=== PATIENT | male | born 1935 | race Caucasian/White ===

== ENCOUNTER 2016-06-12 04:05 | Emergency (ER) | payer MEDICARE ==
[~2016-06-12] VITALS: Ht 167.6 cm; Wt 65.3 kg
[~2016-06-12 04:05] MED LIST: ASPIRIN81 M1 PO; COZAAR100 MG PO; CRESTOR10 MG PO; FISH OIL; KEFTAB500 MG PO; MULTIVITAMIN; PLAVIX75 MG PO
[2016-06-12] MEDS ORDERED: BRILINTA90 M1 PO (04:20)
[2016-06-12] MEDS ORDERED: ISORDIL20 MG PO (04:21)
[2016-06-12] MEDS ORDERED: NITROSTAT0.4 MG SL (04:22)
[2016-06-12] MEDS ORDERED: RANEXA500 M1 PO (04:24)
[2016-06-12] MEDS ORDERED: COREG12.5 M1 PO (04:24)
[2016-06-12 04:28] LABS: BASO % 0.2 % (0.0-1.0); EOS # 0.2 10*3/uL (0.0-0.4); EOS % 1.9 % (1.0-4.0); HEMATOCRIT 41.4 % (42.0-52.0); HEMOGLOBIN 14.1 g/dl (14.0-18.0); LYMPH # 1.8 10*3/uL (1.3-4.4); LYMPH % 19.6 % (27.0-41.0); MEAN CELL VOLUME 93.5 fl (80.0-94.0); MEAN CORPUSCULAR HGB 31.8 pg (27.0-31.0); MEAN CORPUSCULAR HGB CONC 34.1 g/dl (33.0-37.0); MEAN PLATELET VOLUME 11.1 fl (9.6-12.3); MONO # 0.9 10*3/uL (0.1-1.0); MONO % 9.8 % (3.0-9.0); NEUT # 6.1 10*3/uL (2.3-7.9); NEUT % 68.2 % (47.0-73.0); PLATELET COUNT AUTOMATED 178 10*3/uL (130-400); RED BLOOD COUNT 4.43 10*6/uL (4.50-5.90); RED CELL DISTRI WIDTH 13.5 % (0-14.5)
[2016-06-12 04:45] LABS: ALBUMIN 3.5 gm/dl (3.1-4.5); ALKALINE PHOSPHATASE 52 U/L (45-117); BILIRUBIN, TOTAL 0.4 mg/dl (0.2-1.0); BUN 22 mg/dl (7-24); CARBON DIOXIDE 23 mmol/L (21-32); CHLORIDE 110 mmol/L (98-107); EST GLOM FILT AFRICAN AMERICAN 59 ml/min; GLUCOSE 92 mg/dL (65-99); POTASSIUM 4.3 mmol/L (3.5-5.1); SGOT/AST 20 IU/L (3-35); SGPT/ALT 21 U/L (12-78); SODIUM 142 mmol/L (136-145); TOTAL PROTEIN 7.2 gm/dL (6.4-8.2); TROPONIN I < 0.015 ng/ml (<0.5)
[2016-06-12 04:46] LABS: INTERNATIONAL NORM RATIO 1.1 (2.0-3.5); PROTHROMBIN TIME 11.3 SECONDS (9.0-12.4)
== END 2016-06-12 08:38 | disposition short-term general hospital (02) ==
LOC: ED 04:05
PROVIDERS: Emergency Medicine Emergency Medical Services
DX: R07.89 Other chest pain (principal); Z88.8 Allergy status to other drugs, medicaments and biological substances; Z79.82 Long term (current) use of aspirin; Z79.899 Other long term (current) drug therapy

== ENCOUNTER 2017-08-31 17:03 | Emergency (ER) | payer MEDICARE ==
[~2017-08-31] VITALS: Wt 64.4 kg
[~2017-08-31 17:03] MED LIST changes: +BRILINTA90 M1 PO; +COREG12.5 M1 PO; +ISORDIL20 MG PO; +NITROSTAT0.4 MG SL; +RANEXA500 M1 PO
[2017-08-31] MEDS ORDERED: CEFADROXIL500 M1 PO (17:43)
== END 2017-08-31 17:58 | disposition home or self-care (01) ==
LOC: ED 17:03
DX: S61.412A Laceration without foreign body of left hand, initial encounter (principal); Z79.899 Other long term (current) drug therapy; Z79.82 Long term (current) use of aspirin; Z88.8 Allergy status to other drugs, medicaments and biological substances; W45.8XXA Other foreign body or object entering through skin, initial encounter; Y93.89 Activity, other specified; Y92.89 Other specified places as the place of occurrence of the external cause; Y99.9 Unspecified external cause status

== ENCOUNTER 2017-09-01 16:09 | Emergency (ER) | payer MEDICARE ==
[~2017-09-01] VITALS: Wt 64.4 kg
[~2017-09-01 16:09] MED LIST changes: +CEFADROXIL500 M1 PO
== END 2017-09-01 16:25 | disposition home or self-care (01) ==
LOC: ED 16:09
DX: Z48.01 Encounter for change or removal of surgical wound dressing (principal); S61.412D Laceration without foreign body of left hand, subsequent encounter; Z79.82 Long term (current) use of aspirin; Z79.899 Other long term (current) drug therapy; Z88.6 Allergy status to analgesic agent; Z88.8 Allergy status to other drugs, medicaments and biological substances; X58.XXXD Exposure to other specified factors, subsequent encounter

== ENCOUNTER 2017-12-20 19:28 | Emergency (ER) | payer MEDICARE ==
[~2017-12-20] VITALS: Ht 167.6 cm; Wt 64.4 kg
[2017-12-20] MEDS ORDERED: PLAVIX75 M1 PO (19:38)
== END 2017-12-20 19:57 | disposition home or self-care (01) ==
LOC: ED 19:28
DX: L76.21 Postprocedural hemorrhage of skin and subcutaneous tissue following a dermatologic procedure (principal); Z79.899 Other long term (current) drug therapy; Z79.82 Long term (current) use of aspirin; Z88.8 Allergy status to other drugs, medicaments and biological substances

== ENCOUNTER 2018-02-19 11:49 | Emergency (ER) | payer MEDICARE ==
[~2018-02-19] VITALS: Ht 167.6 cm; Wt 63.5 kg
[~2018-02-19 11:49] MED LIST changes: +PLAVIX75 M1 PO
[2018-02-19 12:18] LABS: BASO % 0.5 % (0.0-1.0); EOS # 0.2 10*3/uL (0.0-0.4); EOS % 2.5 % (1.0-4.0); HEMOGLOBIN 14.6 g/dl (14.0-18.0); LYMPH # 1.6 10*3/uL (1.3-4.4); LYMPH % 27.8 % (27.0-41.0); MEAN CELL VOLUME 95.9 fl (80.0-94.0); MEAN CORPUSCULAR HGB 31.8 pg (27.0-31.0); MEAN CORPUSCULAR HGB CONC 33.2 g/dl (33.0-37.0); MEAN PLATELET VOLUME 10.6 fl (9.6-12.3); MONO # 0.5 10*3/uL (0.1-1.0); MONO % 8.1 % (3.0-9.0); NEUT # 3.6 10*3/uL (2.3-7.9); NEUT % 60.4 % (47.0-73.0); PLATELET COUNT AUTOMATED 144 10*3/uL (130-400); RED BLOOD COUNT 4.59 10*6/uL (4.50-5.90); RED CELL DISTRI WIDTH 13.7 % (0-14.5); WHITE BLOOD COUNT 5.9 10*3/uL (4.8-10.8)
[2018-02-19 12:27] LABS: INTERNATIONAL NORM RATIO 1.1 (2.0-3.5)
[2018-02-19 12:34] LABS: ALBUMIN 3.6 gm/dl (3.1-4.5); ALKALINE PHOSPHATASE 57 U/L (45-117); BUN 16 mg/dl (7-24); CHLORIDE 107 mmol/L (98-107); CREATININE 1.13 mg/dL (0.70-1.30); SGOT/AST 23 IU/L (3-35); SGPT/ALT 24 U/L (12-78); SODIUM 139 mmol/L (136-145); TOTAL PROTEIN 7.1 gm/dL (6.4-8.2)
== END 2018-02-19 13:43 | disposition home or self-care (01) ==
LOC: ED 11:49
PROVIDERS: Nurse Practitioner Family
DX: R04.0 Epistaxis (principal); I10 Essential (primary) hypertension; Z88.8 Allergy status to other drugs, medicaments and biological substances; Z79.82 Long term (current) use of aspirin; Z79.899 Other long term (current) drug therapy

== ENCOUNTER → 2019-02-20 | Outpatient (CLI) | payer MEDICARE ==
[2019-02-20 10:34] LABS: CREATININE 1.31 mg/dL (0.70-1.30)
== END | disposition home or self-care (01) ==
LOC: LAB 10:07 → CT 11:00
PROVIDERS: Radiology Diagnostic Radiology
DX: C76.51 Malignant neoplasm of right lower limb (principal); D46.1 Refractory anemia with ring sideroblasts

== ENCOUNTER → 2019-02-21 | Outpatient (CLI) | payer MEDICARE ==
[2019-02-21 16:11] LABS: HEMATOCRIT 31.6 % (42.0-52.0); HEMOGLOBIN 10.2 g/dl (14.0-18.0); MEAN CELL VOLUME 94.6 fl (80.0-94.0); MEAN CORPUSCULAR HGB 30.5 pg (27.0-31.0); MEAN CORPUSCULAR HGB CONC 32.3 g/dl (33.0-37.0); NUCLEATED RED BLOOD CELL 0.2 % (0.0-0.0); PLATELET COUNT AUTOMATED 51 10*3/uL (130-400); RED BLOOD COUNT 3.34 10*6/uL (4.50-5.90); RED CELL DISTRI WIDTH 19.5 % (0-14.5); WHITE BLOOD COUNT 11.2 10*3/uL (4.8-10.8)
[2019-02-21 16:28] LABS: URIC ACID 7.1 mg/dL (3.5-7.2)
[2019-02-21 16:47] LABS: OVALOCYTES FEW; PLATELET SUFFICIENCY LOW (NORMAL); TOTAL CELLS COUNTED 100 #CELLS
[2019-02-21 16:48] LABS: BURR CELLS FEW; SCHISTOCYTES RARE
== END | disposition home or self-care (01) ==
LOC: LAB 15:30
PROVIDERS: Orthopaedic Surgery
DX: M25.532 Pain in left wrist (principal); E78.00 Pure hypercholesterolemia, unspecified; I10 Essential (primary) hypertension

== ENCOUNTER → 2019-03-07 | Outpatient (CLI) | payer MEDICARE ==
[2019-03-08 08:07] LABS: RHEUMATOID ARTHRITIS FACTOR <10.0 IU/mL (0.0-13.9)
[2019-03-08 10:05] LABS: HEPATITIS B SURFACE AG Negative (Negative); HEPATITIS C VIRUS ANTIBODY <0.1 s/co (0.0-0.9)
[2019-03-08 14:06] LABS: ANTI-RNP ANTIBODIES <0.2 AI (0.0-0.9)
[2019-03-09 00:08] LABS: CCP ANTIBODIES IGG/IGA 107 units (0-19); LUPUS DRVVT 34.7 sec (0.0-47.0); PTT-LA 38.9 sec (0.0-51.9)
[2019-03-09 01:09] LABS: LUPUS REFLEX INTERPRETATION Comment: (.)
[2019-03-12 14:09] LABS: HLA-B27 ANTIGEN Negative (.)
== END | disposition home or self-care (01) ==
LOC: LAB 15:22
PROVIDERS: Orthopaedic Surgery
DX: I10 Essential (primary) hypertension (principal); M25.50 Pain in unspecified joint; E78.00 Pure hypercholesterolemia, unspecified; R53.83 Other fatigue